=== PATIENT | male | born 1965 | race Caucasian/White ===

== ENCOUNTER 2023-04-24 22:51 | Inpatient (IN) | payer MEDICAID, OTHER ==
[~2023-04-24] VITALS: Ht 165.1 cm; Wt 87.1 kg
[~2023-04-24 22:51] MED LIST: GLYB-145 PO; LAMO25TA25 PO; LISI-893 PO; METF-1211 PO
[2023-04-24 23:33] LABS: BASOPHILS % (AUTO) 1.6 % (0.0-2.0); HEMOGLOBIN 14.9 g/dL (13.5-17.5); LYMPHOCYTES # (AUTO) 2.4 K/uL (1.0-4.8); LYMPHOCYTES % (AUTO) 34.8 % (22.0-44.0); MEAN CORPUSCULAR HEMOGLOBIN 32.8 pg (26.0-34.0); MEAN CORPUSCULAR HGB CONC 34.6 G/dL (31.0-37.0); MEAN CORPUSCULAR VOLUME 95 fL (80-100); MONOCYTES # (AUTO) 0.4 K/uL (0.1-1.0); MONOCYTES % (AUTO) 5.9 % (2.0-9.0); NEUTROPHILS # (AUTO) 3.9 K/uL (1.8-7.7); NEUTROPHILS % (AUTO) 56.7 % (40.0-70.0); PLATELET COUNT (AUTO) 300 K/uL (150-450); RED BLOOD CELL COUNT(AUTO) 4.53 MIL/uL (4.50-5.90); RED CELL DISTRIBUTION WIDTH 14.2 % (11.5-14.5)
[2023-04-24 23:57] LABS: ALBUMIN 3.5 g/dL (3.4-5.0); BILIRUBIN,TOTAL 0.4 mg/dL (0.1-1.0); CALCIUM, TOTAL 8.5 mg/dL (8.8-10.5); CREATININE 1.28 mg/dL (0.60-1.30); POTASSIUM 3.8 mmol/L (3.5-5.1); TOTAL PROTEIN, SERUM 7.5 g/dL (6.4-8.2)
[2023-04-25] MEDS ORDERED: SODIUM CHLORIDE 0.9% 1,000 ML IV ONE (00:15)
[2023-04-25] MEDS ORDERED: INSULIN REGULAR, HUMAN 100 UNITS/ML IVP ONE (00:15)
[2023-04-25] MEDS ORDERED: POTASSIUM CHLORIDE 20 MEQ ER TABLET PO ONE (00:15)
[2023-04-25 00:25] LABS: COVID AG,FIA SOURCE NASOPHARYNGEAL
[2023-04-25] MEDS ORDERED: ZOLPIDEM TARTRATE 10 MG TABLET PO PRN (00:30)
[2023-04-25] MEDS ORDERED: LORazepam 2 MG TABLET PO PRN (00:30)
[2023-04-25] MEDS ORDERED: HALOPERIDOL 5 MG TABLET PO PRN (00:30)
[2023-04-25 03:26] LABS: APPEARANCE,URINE CLEAR (CLEAR); BILIRUBIN,URINE NEGATIVE (NEGATIVE); GLUCOSE, URINE (UA) >=1000 mg/dL (NEGATIVE); LEUKOCYTE ESTERASE ,URINE NEGATIVE (NEGATIVE); NITRATE,URINE NEGATIVE (NEGATIVE); OCCULT BLOOD,URINE NEGATIVE (NEGATIVE); PROTEIN,URINE 30-70 mg/dL (NEGATIVE); SPECIFIC GRAVITIY, URINE 1.029 (1.003-1.030); UROBILINOGEN,URINE <=1.0 mg/dL (<=1.0)
[2023-04-25 03:32] LABS: AMPHET/METH SCREEN,URINE NEGATIVE (NEGATIVE); BARBITURATE SCREEN, URINE NEGATIVE (NEGATIVE); BENZODIAZEPINES SCREEN,URINE NEGATIVE (NEGATIVE); CANNABINOID SCREEN,URINE NEGATIVE (NEGATIVE); COCAINE SCREEN,URINE NEGATIVE (NEGATIVE); METHADONE SCREEN, URINE NEGATIVE (NEGATIVE); OPIATE SCREEN,URINE NEGATIVE (NEGATIVE); PHENCYCLIDINE SCREEN,URINE NEGATIVE (NEGATIVE)
[2023-04-25 03:40] LABS: BACTERIA,URINE None Seen /HPF (None Seen); RBC,URINE None Seen /HPF (0-2); SQUAMOUS EPITHELIAL CELL,UR None Seen /LPF (None Seen); WBC,URINE None Seen /HPF (0-5)
[2023-04-25] MEDS ORDERED: DEXTROSE 50%-WATER 25 GM/50 ML SYRINGE IVP PRN (06:45)
[2023-04-25] MEDS ORDERED: ONDANSETRON HCL 4 MG TABLET PO PRN (06:45)
[2023-04-25] MEDS ORDERED: CloNIDine HCL 0.1 MG TABLET PO PRN (06:45)
[2023-04-25] MEDS ORDERED: MAGNESIUM HYDROXIDE SUSPENSION 30 ML UDCUP PO PRN (06:45)
[2023-04-25] MEDS ORDERED: INSULIN LISPRO 100 UNITS/ML SQ PRN (06:45)
[2023-04-25] MEDS ORDERED: ACETAMINOPHEN 325 MG TABLET PO PRN (06:45)
[2023-04-25] MEDS ORDERED: PETROLATUM,WHITE 28 GM JELLY TP PRN (06:45)
[2023-04-25] MEDS ORDERED: ALBUTEROL SULFATE HFA 90 MCG/PUFF 8 GM INHALER IH PRN (06:45)
[2023-04-25] MEDS ORDERED: IBUPROFEN 400 MG TABLET PO PRN (06:45)
[2023-04-25] MEDS ORDERED: MAG HYDROX/AL HYDROX/SIMETH ES 30 ML SUSPENSION UDCUP PO PRN (06:45)
[2023-04-25] MEDS ORDERED: DOCUSATE SODIUM 100 MG CAPSULE PO PRN (06:45)
[2023-04-25] MEDS ORDERED: GuaiFENesin/D-METHORPHAN [SUGAR-FREE] 200-20MG/10 ML SYRUP UDCUP PO PRN (06:45)
[2023-04-25] MEDS ORDERED: NICOTINE 14 MG/24 HOUR PATCH TD PRN (06:45)
[2023-04-25] MEDS: LISINOPRIL 10 MG TABLET PO SCH (08:19)
[2023-04-25] MEDS: MetFORMIN HCL 500 MG TABLET PO SCH ×2 (08:21→17:09)
[2023-04-25] MEDS: GlyBURIDE 5 MG TABLET PO SCH (08:37)
[2023-04-25 08:46] LABS: GLUCOMETER DEV NAME(LOC) ER.6; GLUCOSE,POINT OF CARE 232 MG/DL (70-110)
[2023-04-25 08:46] LABS: GLUCOMETER DEV NAME(LOC) ER.6; GLUCOSE,POINT OF CARE 275 MG/DL (70-110)
[2023-04-25] MEDS: LOPERAMIDE HCL 2 MG CAPSULE PO PRN ×2 (08:51→16:05)
[2023-04-25 10:21] LABS: GLUCOMETER DEV NAME(LOC) BV2S.; GLUCOSE,POINT OF CARE 195 MG/DL (70-110)
[2023-04-25 10:45] VITALS: BP 139/88; PULSE 100; RESP 18; TEMP 97.6; O2SAT 96
[2023-04-25 11:31] LABS: GLUCOMETER DEV NAME(LOC) BV2S.; GLUCOSE,POINT OF CARE 132 MG/DL (70-110)
[2023-04-25] MEDS: LACTOBACILLUS ACIDOPHILUS/BULGARICUS GRANULES PACKET PO SCH ×2 (13:00→17:07)
[2023-04-25 16:56] LABS: GLUCOMETER DEV NAME(LOC) BV2S.; GLUCOSE,POINT OF CARE 102 MG/DL (70-110)
[2023-04-25 20:17] VITALS: BP 107/76; PULSE 98; RESP 18; TEMP 97.8
[2023-04-25 20:31] LABS: GLUCOMETER DEV NAME(LOC) BV2S.; GLUCOSE,POINT OF CARE 222 MG/DL (70-110)
[2023-04-25] MEDS ORDERED: GLUCAGON,HUMAN RECOMBINANT 1 MG VIAL IM PRN (21:00)
[2023-04-25] MEDS: INSULIN LISPRO 100 UNITS/ML SQ PRN (21:10)
[2023-04-26 06:26] LABS: GLUCOMETER DEV NAME(LOC) BV2S.; GLUCOSE,POINT OF CARE 227 MG/DL (70-110)
[2023-04-26] MEDS: MetFORMIN HCL 500 MG TABLET PO SCH ×2 (06:45→17:17)
[2023-04-26] MEDS: GlyBURIDE 5 MG TABLET PO SCH (06:45)
[2023-04-26] MEDS: INSULIN LISPRO 100 UNITS/ML SQ PRN ×4 (06:49→21:26)
[2023-04-26 08:16] VITALS: BP 133/74; PULSE 89; RESP 18; TEMP 97.9; O2SAT 100
[2023-04-26 09:36] LABS: CHOL/HDL RATIO 3.4 (4.2-7.3); CHOLESTEROL 260 mg/dL (131-200); HDL CHOLESTEROL 76 mg/dL (40-60); TRIGLYCERIDES 569 mg/dL (15-150)
[2023-04-26] MEDS: LACTOBACILLUS ACIDOPHILUS/BULGARICUS GRANULES PACKET PO SCH ×3 (09:44→17:17)
[2023-04-26] MEDS: FOLIC ACID 1 MG TABLET PO SCH (09:46)
[2023-04-26] MEDS: THIAMINE 100 MG TABLET PO SCH (09:46)
[2023-04-26] MEDS: LISINOPRIL 10 MG TABLET PO SCH (09:46)
[2023-04-26 11:21] LABS: GLUCOMETER DEV NAME(LOC) BV2S.; GLUCOSE,POINT OF CARE 177 MG/DL (70-110)
[2023-04-26 16:56] LABS: GLUCOMETER DEV NAME(LOC) BV2S.; GLUCOSE,POINT OF CARE 206 MG/DL (70-110)
[2023-04-26] MEDS: FLUTICASONE PROPIONATE 50 MCG/SPRAY 16 GM NASAL SPRAY NASAL SCH (19:00)
[2023-04-26 20:22] VITALS: BP 129/76; PULSE 85; RESP 18; TEMP 98; O2SAT 97
[2023-04-26 21:26] LABS: GLUCOMETER DEV NAME(LOC) BV2S.; GLUCOSE,POINT OF CARE 251 MG/DL (70-110)
[2023-04-26] MEDS: TraZODone HCL 50 MG TABLET PO SCH (21:42)
[2023-04-27 06:17] LABS: GLUCOMETER DEV NAME(LOC) BV2S.; GLUCOSE,POINT OF CARE 212 MG/DL (70-110)
[2023-04-27] MEDS: INSULIN LISPRO 100 UNITS/ML SQ PRN ×4 (06:26→20:34)
[2023-04-27] MEDS: GlyBURIDE 5 MG TABLET PO SCH (06:49)
[2023-04-27] MEDS: MetFORMIN HCL 500 MG TABLET PO SCH ×2 (06:49→16:50)
[2023-04-27 08:20] VITALS: BP 145/78; PULSE 66; RESP 18; TEMP 98.2; O2SAT 98
[2023-04-27] MEDS: LISINOPRIL 10 MG TABLET PO SCH (08:32)
[2023-04-27] MEDS: FLUTICASONE PROPIONATE 50 MCG/SPRAY 16 GM NASAL SPRAY NASAL SCH (08:32)
[2023-04-27] MEDS: DULoxetine HCL 60 MG CAPSULE PO SCH (08:32)
[2023-04-27] MEDS: THIAMINE 100 MG TABLET PO SCH (08:32)
[2023-04-27] MEDS: LACTOBACILLUS ACIDOPHILUS/BULGARICUS GRANULES PACKET PO SCH ×3 (08:32→16:50)
[2023-04-27] MEDS: FOLIC ACID 1 MG TABLET PO SCH (08:32)
[2023-04-27 11:41] LABS: GLUCOMETER DEV NAME(LOC) BV2S.; GLUCOSE,POINT OF CARE 223 MG/DL (70-110)
[2023-04-27 16:31] LABS: GLUCOMETER DEV NAME(LOC) BV2S.; GLUCOSE,POINT OF CARE 158 MG/DL (70-110)
[2023-04-27 20:06] VITALS: BP 140/80; PULSE 82; RESP 18; TEMP 97.9; O2SAT 97
[2023-04-27] MEDS: TraZODone HCL 50 MG TABLET PO SCH (20:22)
[2023-04-27 20:36] LABS: GLUCOMETER DEV NAME(LOC) BV2S.; GLUCOSE,POINT OF CARE 149 MG/DL (70-110)
[2023-04-28] MEDS: GlyBURIDE 5 MG TABLET PO SCH (06:51)
[2023-04-28] MEDS: MetFORMIN HCL 500 MG TABLET PO SCH ×2 (06:52→16:35)
[2023-04-28 08:03] VITALS: BP 135/72; PULSE 93; RESP 16; TEMP 98; O2SAT 98
[2023-04-28] MEDS: LISINOPRIL 10 MG TABLET PO SCH (08:32)
[2023-04-28] MEDS: LACTOBACILLUS ACIDOPHILUS/BULGARICUS GRANULES PACKET PO SCH ×3 (08:32→16:35)
[2023-04-28] MEDS: THIAMINE 100 MG TABLET PO SCH (08:32)
[2023-04-28] MEDS: FOLIC ACID 1 MG TABLET PO SCH (08:32)
[2023-04-28] MEDS: DULoxetine HCL 60 MG CAPSULE PO SCH (08:32)
[2023-04-28] MEDS: FLUTICASONE PROPIONATE 50 MCG/SPRAY 16 GM NASAL SPRAY NASAL SCH (09:00)
[2023-04-28 09:56] LABS: GLUCOMETER DEV NAME(LOC) BV2S.; GLUCOSE,POINT OF CARE 139 MG/DL (70-110)
[2023-04-28] MEDS: INSULIN LISPRO 100 UNITS/ML SQ PRN ×3 (11:13→20:43)
[2023-04-28 11:25] LABS: GLUCOMETER DEV NAME(LOC) BV2S.; GLUCOSE,POINT OF CARE 210 MG/DL (70-110)
[2023-04-28 16:41] LABS: GLUCOMETER DEV NAME(LOC) BV2S.; GLUCOSE,POINT OF CARE 161 MG/DL (70-110)
[2023-04-28 20:12] VITALS: BP 132/73; PULSE 78; RESP 20; TEMP 97.8; O2SAT 98
[2023-04-28 20:21] LABS: GLUCOMETER DEV NAME(LOC) BV2S.; GLUCOSE,POINT OF CARE 161 MG/DL (70-110)
[2023-04-28] MEDS: TraZODone HCL 50 MG TABLET PO SCH (20:28)
[2023-04-29] MEDS: MetFORMIN HCL 500 MG TABLET PO SCH ×2 (06:37→16:49)
[2023-04-29] MEDS: GlyBURIDE 5 MG TABLET PO SCH (06:37)
[2023-04-29] MEDS: INSULIN LISPRO 100 UNITS/ML SQ PRN ×4 (06:42→21:02)
[2023-04-29 06:46] LABS: GLUCOMETER DEV NAME(LOC) BV2S.; GLUCOSE,POINT OF CARE 161 MG/DL (70-110)
[2023-04-29 08:21] VITALS: BP 124/69; PULSE 87; RESP 19; TEMP 98.2
[2023-04-29] MEDS: LACTOBACILLUS ACIDOPHILUS/BULGARICUS GRANULES PACKET PO SCH ×3 (08:35→16:49)
[2023-04-29] MEDS: LISINOPRIL 10 MG TABLET PO SCH (08:35)
[2023-04-29] MEDS: DULoxetine HCL 60 MG CAPSULE PO SCH (08:35)
[2023-04-29] MEDS: FLUTICASONE PROPIONATE 50 MCG/SPRAY 16 GM NASAL SPRAY NASAL SCH (08:35)
[2023-04-29] MEDS: THIAMINE 100 MG TABLET PO SCH (08:36)
[2023-04-29] MEDS: FOLIC ACID 1 MG TABLET PO SCH (08:36)
[2023-04-29 11:40] LABS: GLUCOMETER DEV NAME(LOC) BV2S.; GLUCOSE,POINT OF CARE 153 MG/DL (70-110)
[2023-04-29 16:51] LABS: GLUCOMETER DEV NAME(LOC) BV2S.; GLUCOSE,POINT OF CARE 279 MG/DL (70-110)
[2023-04-29 20:15] VITALS: BP 110/61; PULSE 103; RESP 18; TEMP 98.1; O2SAT 95
[2023-04-29] MEDS: TraZODone HCL 50 MG TABLET PO SCH (20:30)
[2023-04-29 21:10] LABS: GLUCOMETER DEV NAME(LOC) BV2S.; GLUCOSE,POINT OF CARE 208 MG/DL (70-110)
[2023-04-30 06:26] LABS: GLUCOMETER DEV NAME(LOC) BV2S.; GLUCOSE,POINT OF CARE 144 MG/DL (70-110)
[2023-04-30] MEDS: MetFORMIN HCL 500 MG TABLET PO SCH ×2 (06:57→17:04)
[2023-04-30] MEDS: GlyBURIDE 5 MG TABLET PO SCH (06:57)
[2023-04-30] MEDS: INSULIN LISPRO 100 UNITS/ML SQ PRN ×4 (06:59→20:41)
[2023-04-30 08:12] VITALS: BP 120/61; PULSE 84; RESP 18; TEMP 98.2; O2SAT 97
[2023-04-30] MEDS: LACTOBACILLUS ACIDOPHILUS/BULGARICUS GRANULES PACKET PO SCH ×3 (08:52→17:01)
[2023-04-30] MEDS: THIAMINE 100 MG TABLET PO SCH (08:53)
[2023-04-30] MEDS: LISINOPRIL 10 MG TABLET PO SCH (08:53)
[2023-04-30] MEDS: DULoxetine HCL 60 MG CAPSULE PO SCH (08:53)
[2023-04-30] MEDS: FOLIC ACID 1 MG TABLET PO SCH (08:53)
[2023-04-30] MEDS: FLUTICASONE PROPIONATE 50 MCG/SPRAY 16 GM NASAL SPRAY NASAL SCH (09:00)
[2023-04-30 11:26] LABS: GLUCOMETER DEV NAME(LOC) BV2S.; GLUCOSE,POINT OF CARE 183 MG/DL (70-110)
[2023-04-30 16:36] LABS: GLUCOMETER DEV NAME(LOC) BV2S.; GLUCOSE,POINT OF CARE 223 MG/DL (70-110)
[2023-04-30] MEDS: TraZODone HCL 50 MG TABLET PO SCH (20:10)
[2023-04-30 20:20] VITALS: BP 127/63; PULSE 83; RESP 18; TEMP 97.8; O2SAT 96
[2023-04-30 20:56] LABS: GLUCOMETER DEV NAME(LOC) BV2S.; GLUCOSE,POINT OF CARE 198 MG/DL (70-110)
[2023-05-01 06:21] LABS: GLUCOMETER DEV NAME(LOC) BV2S.; GLUCOSE,POINT OF CARE 160 MG/DL (70-110)
[2023-05-01] MEDS: GlyBURIDE 5 MG TABLET PO SCH (06:44)
[2023-05-01] MEDS: MetFORMIN HCL 500 MG TABLET PO SCH ×2 (06:44→16:20)
[2023-05-01] MEDS: INSULIN LISPRO 100 UNITS/ML SQ PRN ×3 (06:45→16:34)
[2023-05-01] MEDS: LACTOBACILLUS ACIDOPHILUS/BULGARICUS GRANULES PACKET PO SCH ×3 (08:56→16:20)
[2023-05-01] MEDS: DULoxetine HCL 60 MG CAPSULE PO SCH (08:56)
[2023-05-01] MEDS: FOLIC ACID 1 MG TABLET PO SCH (08:56)
[2023-05-01] MEDS: LISINOPRIL 10 MG TABLET PO SCH (08:56)
[2023-05-01] MEDS: THIAMINE 100 MG TABLET PO SCH (08:56)
[2023-05-01] MEDS: FLUTICASONE PROPIONATE 50 MCG/SPRAY 16 GM NASAL SPRAY NASAL SCH (08:58)
[2023-05-01 09:10] VITALS: BP 127/67; PULSE 89; RESP 18; TEMP 97.8; O2SAT 95
[2023-05-01 11:56] LABS: GLUCOMETER DEV NAME(LOC) BV2S.; GLUCOSE,POINT OF CARE 184 MG/DL (70-110)
[2023-05-01] MEDS ORDERED: THIA100T80 PO (16:44)
[2023-05-01] MEDS ORDERED: DULO-113 PO (16:46)
[2023-05-01] MEDS ORDERED: TRAZ-252 PO (16:47)
[2023-05-01 17:11] LABS: GLUCOMETER DEV NAME(LOC) BV2S.; GLUCOSE,POINT OF CARE 185 MG/DL (70-110)
== END 2023-05-01 17:00 | disposition left against medical advice (07) | DRG 751 ==
LOC: EMS 22:52 → B2S 04-25 03:00
PROVIDERS: ADMIT Psychiatry & Neurology Child & Adolescent Psychiatry; ATTEND Psychiatry & Neurology Child & Adolescent Psychiatry
DX: F33.2 Major depressive disorder, recurrent severe without psychotic features (principal); R45.851 Suicidal ideations; E11.22 Type 2 diabetes mellitus with diabetic chronic kidney disease; F29 Unspecified psychosis not due to a substance or known physiological condition; E11.65 Type 2 diabetes mellitus with hyperglycemia; N18.9 Chronic kidney disease, unspecified; Z20.822 Contact with and (suspected) exposure to COVID-19; Z53.21 Procedure and treatment not carried out due to patient leaving prior to being seen by health care provider; I12.9 Hypertensive chronic kidney disease with stage 1 through stage 4 chronic kidney disease, or unspecified chronic kidney disease; E78.00 Pure hypercholesterolemia, unspecified; F10.10 Alcohol abuse, uncomplicated; F17.210 Nicotine dependence, cigarettes, uncomplicated; F43.10 Post-traumatic stress disorder, unspecified; F41.9 Anxiety disorder, unspecified; Z79.84 Long term (current) use of oral hypoglycemic drugs; Z79.899 Other long term (current) drug therapy
CPT/HCPCS: 80053; 80061; 80307; 81001; 82962; 85025; 99285; G0480; J1815; J7030